=== PATIENT | male | born 1955 | race Caucasian/White ===

== ENCOUNTER → 2016-09-05 | Outpatient (CLI) | payer MEDICAID ==
[~2016-09-05] MED LIST: ALLOPURINOL300 MG PO; AMIODARONE HCL100 MG PO; ASPIRIN81 M1 PO; ASPIRIN81 MG PO; BUMEX2 MG PO; CARVEDILOL6.25 MG PO; CEFAZOLIN1 GM/10 M1 IVP; COREG3.125 MG PO; COREG6.25 MG PO; COUMADIN5 MG PO; FOLIC ACID1 MG PO; KCL PO; LANOXIN125 MCG PO; LASIX PO; LASIX20 MG PO; LISINOPRIL10 MG PO; LISINOPRIL20 MG PO; NICOTINE TRANSD21 MG TD; NO HOME MEDS; THIAMINE HCL100 MG PO; TOPROL XL PO; ZOLOFT PO
--- NOTE | ~2016-09-05 | US135 ---
[facility] A Service of [facility] & [facility] RADIOLOGY TEXT RESULTS PATIENT: MARIBETH BARAHONA LOCATION: [facility] : 59 UNIT #: [id number] AGE: [address]: Eliane Malloy MD SEX: M ORDER DR: [id number] [facility] [address] [place], [place] [address] [id number] O MR#: [id number] Acc #: [id number] NAME: MARIBETH BARAHONA : 1955 SEX: M STUDY DATE/TIME: 09/05/2016 11:53 UNIT: [facility] ROOM: STUDY DESCRIPTION: US U/L Ext Art Study Comp Jesus Attending Physician: Eliane Malloy M.D. Referring Physician: Eliane Malloy M.D. Ordering Physician: Eliane Malloy M.D. Primary Care Physician: No Primary Care Physician MEDICAL IMAGING REPORT This report is preliminary unless electronic signature is present EXAM Ankle brachial indices with segmental pressures HISTORY Peripheral vascular disease FINDINGS The right brachial artery pressure is 79. The right upper thigh pressure is 110, low thigh 90, calf 82. The right dorsalis pedis pressure is 66, with an ankle brachial index of 0.84. The right posterior tibial pressure is 77, with a ankle brachial index of 0.97. The right digital pressure is 62, with a toe index of 0.78. The left brachial artery pressure is 75. The left upper thigh pressure is 115, low thigh 111, with calf 90. The left dorsalis pedis pressure is 85, with an ankle brachial index of 1.08. The left posterior tibial pressure is 88, with an ankle brachial index of 1.11. The left digital pressure is 72, with a toe index of 0.91. The posterior tibial and dorsalis pedis waveforms appear monophasic, bilaterally. Pulse volume recordings bilaterally, appear irregular, in that there is no defined upstroke or systolic peak. IMPRESSION 1. The right MARTINEZ 0.97, which is normal. It is difficult to make interpretation of the pulse volume recordings, due to artifact. 2. The left MARTINEZ is 1.11, which is normal, again pulse volume recordings appear erratic which may be due to artifact. [facility] A Service of [facility] & [facility] RADIOLOGY TEXT RESULTS PATIENT: MARIBETH BARAHONA LOCATION: [facility] : [birth year] UNIT #: [id number] AGE: [address]: Eliane Malloy MD SEX: M ORDER DR: Dictated by... Osmany Ford M.D. THIS IS AN ELECTRONICALLY VERIFIED REPORT Osmany Ford M.D. at 09/10/2016 8:24 AM LESIA/jana TD: 09/05/2016 16:18 JOB #: [id number] MEDICAL IMAGING REPORT COPY
== END | disposition home or self-care (01) ==
LOC: CNIV 11:21
DX: I73.9 Peripheral vascular disease, unspecified (principal)
CPT/HCPCS: 93923

== ENCOUNTER → 2016-09-16 | Outpatient (CLI) | payer MEDICAID ==
[2016-09-16 14:54] LABS: INR 2.4; PROTHROMBIN TIME (PATIENT) 27.1 SECONDS (9.5-12.4)
[2016-09-16 15:50] LABS: ALBUMIN SERUM 4.2 g/dL (3.5-5.0); ALKALINE PHOSPHATASE 109 U/L (32-92); ALT (SGPT) 24 U/L (10-40); AST (SGOT) 24 U/L (10-42); BILIRUBIN,TOTAL 0.9 mg/dL (0.2-2.0); BLOOD UREA NITROGEN 20 mg/dL (9-23); BUN/CREATININE RATIO 16.66; CALCIUM SERUM 9.1 mg/dL (8.4-10.2); CARBON DIOXIDE 25 mmol/L (22-31); CHLORIDE 101 mmol/L (100-111); CREATININE SERUM 1.2 mg/dL (0.6-1.4); GLOM FILT RATE Estimated ABOVE60 mL/min (>60); GLUCOSE FASTING 101 mg/dL (70-110); POTASSIUM 4.8 mmol/L (3.5-5.1); PROTEIN TOTAL SERUM 7.8 g/dL (6.0-8.3); SODIUM 133 mmol/L (135-145)
== END | disposition home or self-care (01) ==
LOC: SLAB 08:17
PROVIDERS: Internal Medicine Cardiovascular Disease
DX: I50.9 Heart failure, unspecified (principal); I42.9 Cardiomyopathy, unspecified; Z95.811 Presence of heart assist device; Z79.899 Other long term (current) drug therapy
CPT/HCPCS: 36415; 80053; 85610

== ENCOUNTER → 2016-11-29 | Outpatient (CLI) | payer MEDICAID ==
[2016-11-29 12:46] LABS: HEMATOCRIT 36.9 % (38.0-50.0); HEMOGLOBIN 12.4 gm/dL (13.0-16.0); MEAN CELL VOLUME 88.3 FL (83-96); MEAN CORPUSCULAR HEMOGLOBIN 29.7 PG (28-34); MEAN CORPUSCULAR HGB CONC 33.6 g/dL (30-36); MEAN PLATELET VOLUME 6.4 FL (6.5-11.5); RED BLOOD COUNT 4.18 X10e (3.90-5.60); RED CELL DISTRIBUTION WIDTH 14.7 % (11.0-15.5); WHITE BLOOD COUNT 10.5 X10e3 (4.0-10.5)
[2016-11-29 13:04] LABS: BUN/CREATININE RATIO 15.29; CREATININE SERUM 1.7 mg/dL (0.6-1.4); GLOM FILT RATE Estimated 43.5 mL/min (>60); POTASSIUM 4.4 mmol/L (3.5-5.1)
[2016-11-29 13:09] LABS: CALCIUM SERUM 8.6 mg/dL (8.4-10.2)
== END | disposition home or self-care (01) ==
LOC: SLAB 12:31
PROVIDERS: Internal Medicine Cardiovascular Disease
DX: I50.9 Heart failure, unspecified (principal); I42.7 Cardiomyopathy due to drug and external agent; Z95.811 Presence of heart assist device; Z79.899 Other long term (current) drug therapy
CPT/HCPCS: 36415; 80048; 85027

== ENCOUNTER → 2016-12-17 | Outpatient (CLI) | payer MEDICAID | END | disposition home or self-care (01) | LOC: CLAB 13:51 | DX: D64.9 Anemia, unspecified (principal); I42.9 Cardiomyopathy, unspecified; Z95.811 Presence of heart assist device | CPT/HCPCS: 86850; 86900; 86901; 86923 ==

== ENCOUNTER → 2016-12-18 | Outpatient (CLI) | payer MEDICAID | END | disposition home or self-care (01) | LOC: CSSDAY 07:28 | DX: D64.9 Anemia, unspecified (principal); I42.9 Cardiomyopathy, unspecified; Z95.9 Presence of cardiac and vascular implant and graft, unspecified; Z79.01 Long term (current) use of anticoagulants | CPT/HCPCS: 36430; J1940; P9016 ==

== ENCOUNTER 2016-12-19 00:13 | Emergency (ER) | payer MEDICAID ==
--- NOTE | ~2016-12-19 | CR72 ---
[facility] A Service of [facility] & [facility] RADIOLOGY TEXT RESULTS PATIENT: MARIBETH BARAHONA LOCATION: [facility] : [birth year] UNIT #: [id number] AGE: [address]: Adair Smith MD SEX: M ORDER DR: [id number] [facility] [address] [place], [place] [address] [id number] E MR#: [id number] Acc #: [id number] NAME: MARIBETH BARAHONA : 1955 SEX: M STUDY DATE/TIME: 12/19/2016 1:33 UNIT: [facility] ROOM: STUDY DESCRIPTION: CR Chest Single View Portable Attending Physician: Adair Smith Ordering Physician: Ed Doc Anisa Carrasquillo Primary Care Physician: Braden Rojas M.D. MEDICAL IMAGING REPORT This report is preliminary unless electronic signature is present EXAM Portable chest INDICATION Shortness of air, pulmonary edema, evaluate ventricular-assist device. Symptoms for 1 day. COMPARISON 12/10/2016 FINDINGS Portable view of the chest was obtained. The heart is moderately enlarged. The ventricular-assist device pacemaker and PICC catheter are in good position. There is left lower lobe atelectasis. IMPRESSION No change from 12/10/2016. There is left base atelectasis and cardiomegaly. Dictated by... Rupesh Chou M.D. THIS IS AN ELECTRONICALLY VERIFIED REPORT Rupesh Chou M.D. at 12/19/2016 5:56 AM KAUSHIK/fco TD: 12/19/2016 04:47 JOB #: [id number] MEDICAL IMAGING REPORT Page 1 of 1 COPY
[2016-12-19 02:14] LABS: BASOPHIL% 0.3 % (0-2.5); EOSINOPHIL# 0.1 X10e3 (0-0.7); EOSINOPHIL% 1.2 % (0.0-7.0); HEMATOCRIT 32.9 % (38.0-50.0); HEMOGLOBIN 10.6 gm/dL (13.0-16.0); LYMPHOCYTE# 1.3 X10e3 (1.0-3.5); MEAN CELL VOLUME 91.3 FL (83-96); MEAN CORPUSCULAR HEMOGLOBIN 29.4 PG (28-34); MEAN CORPUSCULAR HGB CONC 32.2 g/dL (30-36); MEAN PLATELET VOLUME 6.6 FL (6.5-11.5); MONOCYTE% 9.8 % (3.0-12.0); NEUTROPHIL# 7.6 X10e3 (1.5-7.1); NEUTROPHIL% 75.7 % (40-75); PLATELET COUNT 287 X10e3 (140-420); RED CELL DISTRIBUTION WIDTH 18.7 % (11.0-15.5)
[2016-12-19 02:17] LABS: DIFF IND NO
[2016-12-19 02:26] LABS: INR 1.8; PARTIAL THROMBOPLASTIN TIME 36.6 SECONDS (23.5-31.3); PROTHROMBIN TIME (PATIENT) 19.4 SECONDS (10.0-11.7)
[2016-12-19 02:26] LABS: POC - CKMB 15.5 ng/mL (0.0-7.9); POC - TROPONIN <0.05 ng/mL (<=0.05)
[2016-12-19 02:34] LABS: BUN/CREATININE RATIO 12.66; CREATININE SERUM 1.5 mg/dL (0.6-1.4); GLOM FILT RATE Estimated 50.3 mL/min (>60); POTASSIUM 3.9 mmol/L (3.5-5.1)
== END 2016-12-19 03:15 | disposition home or self-care (01) ==
LOC: CED 00:13
PROVIDERS: Emergency Medicine
DX: R06.02 Shortness of breath (principal); R60.0 Localized edema; F17.210 Nicotine dependence, cigarettes, uncomplicated; Z79.899 Other long term (current) drug therapy
CPT/HCPCS: 36415; 71010; 80048; 82553; 83880; 84484; 85025; 85610; 85730; 99285

== ENCOUNTER → 2017-01-23 | Outpatient (CLI) | payer MEDICAID ==
--- NOTE | ~2017-01-23 | CR63 ---
[facility] A Service of [facility] RADIOLOGY TEXT RESULTS PATIENT: MARIBETH BARAHONA [id number] : [birth year] UNIT #: [id number] AGE: [address]: Femi Ng MD SEX: M ORDER DR: [id number] [facility] [address] [place], [place] [address] [id number] O MR#: [id number] Acc #: [id number] NAME: MARIBETH BARAHONA. : 1955 SEX: M STUDY DATE/TIME: 01/23/2017 14:55 UNIT: [facility] ROOM: STUDY DESCRIPTION: CR Chest 2 View Attending Physician: Femi Ng M.D. Referring Physician: Femi Ng M.D. Ordering Physician: Femi Ng M.D. Primary Care Physician: Braden Rojas M.D. MEDICAL IMAGING REPORT This report is preliminary unless electronic signature is present EXAM PA and lateral chest INDICATIONS Previous left thoracentesis. Shortness of air. Follow up pleural effusion. COMPARISON STUDIES 01/11/2017. FINDINGS A portable view of the chest obtained. The right lung is clear. There is mild cardiomegaly. There is a small left pleural effusion which is similar to slightly larger than on 01/11/2017. Cardiac-assist device and pacemaker are present. IMPRESSION Small left pleural effusion appears slightly increased from 01/11/2017 and some stable cardiomegaly. Dictated by... Rupesh Chou M.D. THIS IS AN ELECTRONICALLY VERIFIED REPORT Rupesh Chou M.D. at 01/25/2017 8:37 AM FEL/pcl TD: 01/24/2017 19:51 JOB #: [id number] MEDICAL IMAGING REPORT [facility] A Service of [facility] & [facility] RADIOLOGY TEXT RESULTS PATIENT: MARIBETH BARAHONA [id number] : [birth year] UNIT #: [id number] AGE: [address]: Femi Ng MD SEX: M ORDER DR: Page 1 of 1 COPY
== END | disposition home or self-care (01) ==
LOC: CRAD 14:47
DX: J90 Pleural effusion, not elsewhere classified (principal); I51.7 Cardiomegaly
CPT/HCPCS: 71020

== ENCOUNTER → 2017-02-12 | Outpatient (CLI) | payer MEDICAID ==
[2017-02-12 13:55] LABS: PROTHROMBIN TIME (PATIENT) 22.2 SECONDS (9.5-12.4)
== END | disposition home or self-care (01) ==
LOC: SLAB 12:46
PROVIDERS: Internal Medicine Cardiovascular Disease
DX: I50.9 Heart failure, unspecified (principal); I42.7 Cardiomyopathy due to drug and external agent; Z95.811 Presence of heart assist device; Z79.899 Other long term (current) drug therapy
CPT/HCPCS: 36415; 85610

== ENCOUNTER → 2017-02-21 | Outpatient (CLI) | payer MEDICAID ==
[2017-02-21 15:56] LABS: BUN/CREATININE RATIO 13.33; CALCIUM SERUM 8.7 mg/dL (8.4-10.2); CREATININE SERUM 2.1 mg/dL (0.6-1.4); GLOM FILT RATE Estimated 33.5 mL/min (>60); POTASSIUM 4.2 mmol/L (3.5-5.1)
== END | disposition home or self-care (01) ==
LOC: SLAB 15:18
PROVIDERS: Internal Medicine Cardiovascular Disease
DX: I50.9 Heart failure, unspecified (principal); I42.7 Cardiomyopathy due to drug and external agent; Z95.811 Presence of heart assist device; Z79.899 Other long term (current) drug therapy
CPT/HCPCS: 36415; 80048

== ENCOUNTER → 2017-02-28 | Outpatient (CLI) | payer MEDICAID ==
[2017-02-28 11:09] LABS: MEAN PLATELET VOLUME 6.7 FL (6.5-11.5); WHITE BLOOD COUNT 9.9 X10e3 (4.0-10.5)
[2017-02-28 11:11] LABS: HEMATOCRIT 17.3 % (38.0-50.0); MEAN CELL VOLUME 87.2 FL (83-96); MEAN CORPUSCULAR HEMOGLOBIN 28.8 PG (28-34); RED BLOOD COUNT 1.98 X10e (3.90-5.60); RED CELL DISTRIBUTION WIDTH 18.1 % (11.0-15.5)
[2017-02-28 12:20] LABS: PROTHROMBIN TIME (PATIENT) 33.8 SECONDS (9.5-12.4)
[2017-02-28 12:24] LABS: HEMOGLOBIN 5.7 gm/dL (13.0-16.0)
== END | disposition home or self-care (01) ==
LOC: STPL 10:48
PROVIDERS: Internal Medicine Cardiovascular Disease
DX: I50.9 Heart failure, unspecified (principal); I42.7 Cardiomyopathy due to drug and external agent; Z95.811 Presence of heart assist device; Z79.899 Other long term (current) drug therapy
CPT/HCPCS: 36415; 85027; 85610

== ENCOUNTER → 2017-03-14 | Outpatient (CLI) | payer MEDICAID ==
[2017-03-14 13:08] LABS: INR 3.6; PROTHROMBIN TIME (PATIENT) 40.8 SECONDS (9.5-12.4)
== END | disposition home or self-care (01) ==
LOC: SLAB 12:40
PROVIDERS: Internal Medicine Cardiovascular Disease
DX: I50.9 Heart failure, unspecified (principal); I42.7 Cardiomyopathy due to drug and external agent; Z95.811 Presence of heart assist device; Z79.899 Other long term (current) drug therapy
CPT/HCPCS: 85610